=== PATIENT | female | born 1950 | race Caucasian/White ===

== ENCOUNTER → 2019-01-26 | Day surgery (SDC) | payer MEDICARE, OTHER ==
[2019-01-24 15:10] LABS: Urine Bacteria NONE SEEN /hpf (None Seen); Urine Blood TRACE /uL (Negative); Urine Specific Gravity 1.016 (1.001-1.035); Urine WBC 38 /hpf (0 - 5)
[2019-01-24 15:16] LABS: Basophils # (auto) 0 uL; Basophils % (auto) 0.7 % (0.0-2.0); Eosinophils # (auto) 0.2 uL; Eosinophils % (auto) 3.6 % (0.0-7.0); Hematocrit 40.1 % (36.0-46.0); Hemoglobin 13.3 g/dL (12.2-16.2); Lymphocytes # (auto) 2.2 uL; Lymphocytes % (auto) 33.5 % (10.0-50.0); Mean Corpuscular Hemoglobin 31.9 pg (28.0-32.0); Mean Corpuscular Hgb Conc. 33.2 g/dL (32.0-36.0); Mean Corpuscular Volume 96.1 fL (80.0-100.0); Monocytes # (auto) 0.5 uL; Monocytes % (auto) 7.2 % (0.0-12.0); Neutrophils # (auto) 3.6 uL; Nucleated Red Blood Cells % 0.2 %; Platelet Count (auto) 237 10^3/uL (140-450); Red Blood Cells 4.18 10^6/uL (4.0-5.20); Red Cell Distribution Width 13.9 % (11.8-14.3); White Blood Cell 6.5 10^3/uL (4.4-10.8)
[2019-01-24 15:30] LABS: Potassium 4.5 mmol/L (3.5-5.1)
[2019-01-24 15:39] LABS: Albumin 3.5 g/dL (3.4-5.0); BUN/Creatinine Ratio 14.4; Bilirubin, Total 0.8 mg/dL (0.2-1.0); Calcium 8.9 mg/dL (8.5-10.1); INR < 0.93 (0.9-1.15); Partial Thromboplastin Time 24.5 sec (23.64-32.05); Total Protein 7.2 g/dL (6.4-8.2)
[~2019-01-26] VITALS: Ht 154.9 cm; Wt 99.3 kg
[~2019-01-26] MED LIST: BUPRTAB PO; CALC750T2 PO; CHOL1CAP55 PO; DexAMETHasone SOD PHOS 10MG/1ML VIAL INJ ONE; FERRCAP PO; FLUO60TA7 PO; GLYCOPYRROLATE 0.2 MG/ML 1ML VIAL ONE; LEVO75TA6 PO; LIDOCAINE 1% HCL (LOCAL ANESTH.) INJ 20ML MDV ONE; MIDAZOLAM HCL 1MG/1ML-2 ML VIAL ONE; NEOSTIGMINE 1 MG/ML INJ (10mg/10ML VIAL) ONE; ONDANSETRON HCL 4 MG/2 ML VIAL ONE; ROCURONIUM 10MG/ML 10ML VIAL IV ONE; ROPIVACAINE 0.5% (5MG/ML) 20ML AMPULE IJ ONE; SUCCINYLCHOLINE CHLORIDE 20 MG/ML 10ML VIAL IV ONE; VERA80TA PO; ZINC30CA PO; [UNRECOGNIZED DRUG - CODE] PO; ceFAZolin 1GM/50ML 50 ML IV ONE; fentaNYL CITRATE 100 MCG/2 ML VL ONE
[2019-01-26] MEDS: HYDROmorphone HCL 2 MG/ML VL IV PRN ×2 (16:13→16:23)
[2019-01-26 16:52] VITALS: BP 111/89
== END | disposition home or self-care (01) ==
LOC: SUR 11:53
PROVIDERS: ATTEND Orthopaedic Surgery
DX: S52.122A Displaced fracture of head of left radius, initial encounter for closed fracture (principal); S53.432A Radial collateral ligament sprain of left elbow, initial encounter; M65.88 Other synovitis and tenosynovitis, other site; I10 Essential (primary) hypertension; E66.8 Other obesity; F32.9 Major depressive disorder, single episode, unspecified; Z87.891 Personal history of nicotine dependence; Z98.890 Other specified postprocedural states; Z79.899 Other long term (current) drug therapy; Z91.09 Other allergy status, other than to drugs and biological substances; Z79.01 Long term (current) use of anticoagulants; Z90.710 Acquired absence of both cervix and uterus; Z98.84 Bariatric surgery status; Z96.651 Presence of right artificial knee joint; Z68.41 Body mass index [BMI] 40.0-44.9, adult; W19.XXXA Unspecified fall, initial encounter; Y93.89 Activity, other specified; Y92.89 Other specified places as the place of occurrence of the external cause; Y99.8 Other external cause status
CPT/HCPCS: 24102; 24343; 24665; 36415; 73070; 80053; 81001; 85025; 85610; 85730; C1713; C1769; J0330; J0690; J1100; J1170; J2001; J2250; J2405; J2795; J3010; 76000